=== PATIENT | male | born 1960 | race Two or more races ===

== ENCOUNTER 2016-12-06 10:06 | Emergency (ER) | payer SELFPAY ==
[2016-12-06 10:22] VITALS: BP 152/95
[2016-12-06] MEDS ORDERED: Ketorolac 60 MG/2 ML SDV IM ONE (10:26)
--- NOTE | 2016-12-06 10:59 | EDM.PDOC ---
ED HPI GENERAL MEDICAL PROBLEM - General Chief Complaint: Back Pain or Injury Stated Complaint: BACK PAIN Time Seen by Provider: 12/06/16 10:15 Source of Information: Reports: Patient History Limitations: Reports: No Limitations - History of Present Illness INITIAL COMMENTS - FREE TEXT/NARRATIVE: History of present illness: [56-year-old male presenting with complaints of low back pain. Indicates that at his work he has been lifting very heavy hoses follow serum and a few days ago while doing this he felt his back give out and heard a loud pop] Review of systems: As per history of present illness and below otherwise all systems reviewed and negative. Past medical history: As per history of present illness and as reviewed below otherwise noncontributory. Surgical history: As per history of present illness and as reviewed below otherwise noncontributory. Social history: No reported history of drug or alcohol abuse. Family history: As per history of present illness and as reviewed below otherwise noncontributory. Physical exam: HEENT: Atraumatic, normocephalic, pupils reactive, negative for conjunctival pallor or scleral icterus, mucous membranes moist, throat clear, neck supple, nontender, trachea midline. Lungs: Clear to auscultation, breath sounds equal bilaterally, chest nontender. Heart: S1S2, regular, negative for clicks, rubs, or JVD. Abdomen: Soft, nondistended, nontender. Negative for masses or hepatosplenomegaly. Negative for costovertebral tenderness. Pelvis: Stable nontender. Genitourinary: Deferred. Rectal: Deferred. Extremities: Atraumatic, negative for cords or calf pain. Neurovascular unremarkable. Neuro: Awake, alert, oriented. Cranial nerves II through XII unremarkable. Cerebellum unremarkable. Motor and sensory unremarkable throughout. Exam nonfocal. Diagnostics: [X-ray lumbar spine] Therapeutics: [Toradol injection] Impression: [Back pain] Plan:medrol dose pack] Definitive disposition and diagnosis as appropriate pending reevaluation and review of above. lower mid back Pain Score (Numeric/FACES): 6 - Related Data Allergies Allergy/AdvReac Type Severity Reaction Status Date / Time No Known Allergies Allergy Verified 12/06/16 10:20 Home Meds: Home Meds . [No Known Home Meds] 12/06/16 [History] Past Medical History - Past Health History Medical/Surgical History: Denies Medical/Surgical History - Infectious Disease History Infectious Disease History: Reports: Chicken Pox - Past Surgical History Musculoskeletal Surgical History: Reports: Other (See Below) Social & Family History - Family History Family Medical History: Noncontributory - Tobacco Use Smoking Status *Q: Current Every Day Smoker Years of Tobacco use: 15 Packs/Tins Daily: 1 - Caffeine Use Caffeine Use: Reports: None - Alcohol Use Days Per Week of Alcohol Use: 1 Number of Drinks Per Day: 4 Total Drinks Per Week: 4 - Recreational Drug Use Recreational Drug Use: No ED ROS GENERAL - Review of Systems Review Of Systems: See Below (See history of present illness) ED EXAM,LOWER BACK PAIN/INJURY - Physical Exam Exam: See Below (See history of present illness) Course - Vital Signs Last Recorded V/S: Last Vital Signs Temp 36.5 C 12/06/16 10:20 Pulse 107 H 12/06/16 10:20 Resp 18 12/06/16 10:20 BP 152/95 H 12/06/16 10:20 Pulse Ox 97 12/06/16 10:20 - Orders/Labs/Meds Orders: Active Orders 24 hr Category Date Time Status Lumbar Spine wo Cont [CT] Stat Exams 12/06/16 10:17 Taken Meds: Medications Discontinued Medications Generic Name Dose Route Start Last Admin Trade Name [place] PRN Reason Stop Dose Admin Ketorolac Tromethamine 60 mg 12/06/16 10:26 12/06/16 10:36 Toradol IM 12/06/16 10:27 60 mg ONETIME ONE Administration Departure - Departure Time of Disposition: 11:48 Disposition: Home, Self-Care 01 Condition: good Clinical Impression: Low back pain - Discharge Information Instructions: Back Injury Prevention, [id number] Forms: ED Department Discharge Additional Instructions: The following information is given to patients seen in the emergency department who are being discharged to home. This information is to outline your options for follow-up care. We provide all patients seen in our emergency department with a follow-up referral. The need for follow-up, as well as the timing and circumstances, are variable depending upon the specifics of your emergency department visit. If you don't have a primary care physician on staff, we will provide you with a referral. We always advise you to contact your personal physician following an emergency department visit to inform them of the circumstance of the visit and for follow-up with them and/or the need for any referrals to a consulting specialist. The emergency department will also refer you to a specialist when appropriate. This referral assures that you have the opportunity for follow-up care with a specialist. All of these measure are taken in an effort to provide you with optimal care, which includes your follow-up. Under all circumstances we always encourage you to contact your private physician who remains a resource for coordinating your care. When calling for follow-up care, please make the office aware that this follow-up is from your recent emergency room visit. If for any reason you are refused follow-up, please contact the [facility] Emergency Department at and asked to speak to the emergency department charge nurse. Take medication as directed Followup with primary care provider one to 2 days Return to ED as needed as discussed - My Orders Last 24 Hours: My Active Orders 12/06/16 10:17 Lumbar Spine wo Cont [CT] Stat - Assessment/Plan Last 24 Hours: My Active Orders 12/06/16 10:17 Lumbar Spine wo Cont [CT] Stat
--- NOTE | 2016-12-07 13:58 | CT ---
EXAM DATE: 12/06/16 PATIENT'S AGE: 56 Patient: CHETAN GALLARDO Facility: [place], [place] Site . Site : [id number] Study: CT Spine Lumbar [id number]/[id number] 10:38:52 AM Ordering Physician: Doctor Lewis Final Report: HISTORY: Lifting/twisting injury. Technique: CT lumbar spine without contrast. Comparison: None. Findings: Counting reference: Lumbosacral junction. Five lumbar type vertebral bodies. No fracture. Vertebral body heights are maintained. No subluxation. Endplate osteophyte formation throughout the lumbar spine without significant disc space narrowing. No lytic or blastic bone lesions. Facet degenerative changes throughout the lumbar spine, greatest at L4-5 and L5-S1. No high-grade bony canal narrowing. Mild multilevel bony foraminal narrowing. Mild bilateral sacroiliac joint degenerative changes. Paraspinal soft tissues are unremarkable. Impression: 1. No fracture. No other acute findings. 2. Degenerative changes, predominantly involving the facet joints, with mild multilevel bony foraminal narrowing. No high-grade canal narrowing. Please note that all CT scans at this facility use dose modulation, iterative reconstruction, and/or weight-based dosing when appropriate to reduce radiation dose to as low as reasonably achievable. Dictated by Prakash Beasley MD @ Dec 06 2016 11:00AM (Electronic Signature) Report Signed by Proxy. [facility]
== END 2016-12-06 11:56 | disposition home or self-care (01) ==
LOC: MW.ED 10:06
DX: M54.5 Low back pain (principal); F17.210 Nicotine dependence, cigarettes, uncomplicated; X50.0XXA Overexertion from strenuous movement or load, initial encounter
CPT/HCPCS: 72131; 96372; 99283; J1885